=== PATIENT | male | born 1940 | race Caucasian/White ===

== ENCOUNTER 2020-02-15 14:03 | Inpatient (IN) | payer MEDICARE, SELFPAY ==
[2020-02-15 14:06] VITALS: BP 128/89; BP 130/80; PULSE 79; PULSE 80; RESP 20; TEMP 37.1; O2SAT 89; BMI 30.9
--- NOTE | 2020-02-15 14:16 | XR_ITS ---
EXAMINATION: XR CHEST CLINICAL INFORMATION: Hypoxia. COMPARISON: None TECHNIQUE: Frontal view of the chest was obtained. FINDINGS: The lungs are in moderate inspiration with patchy groundglass opacities in both lungs consistent with inflammatory or infectious etiology. There is mild spondylosis dorsal spine. No lytic process. XR/XR chest 1V IMPRESSION: Patchy groundglass opacities in both lungs suggestive of infiltrates likely secondary to Covid infection.
--- NOTE | 2020-02-15 14:17 | ECG_ITS ---
Test Reason : WEAKNESS Blood Pressure : / mmHG Vent. Rate : 072 BPM Atrial Rate : 072 BPM P-R Int : 182 ms QRS Dur : 124 ms QT Int : 438 ms P-R-T Axes : 025 -23 007 degrees QTc Int : 479 ms Normal sinus rhythm Right bundle branch block Abnormal ECG No previous ECGs available Referred By: Kasandra Zaman Electronically Signed By:Richard Rodriguez
--- NOTE | 2020-02-15 14:18 | ED_ITS ---
HPI - General Adult General Chief complaint: Dyspnea Stated complaint: weakness Time Seen by Provider: 02/15/20 14:16 Source: patient and EMS Mode of arrival: EMS Limitations: no limitations History of Present Illness HPI narrative: 79 y/o male with history of DM, BPH, HLD who presents with generalized weakness, fatigue, loss of appetite and loss of taste and smell. He just got out of senior care last week and was exposed to several people with COVID- 19. He reports dizziness when ambulating, mild cough, and chills. His symptoms have been getting progressively worse over the last 4-5 days. He denies shortness of breath or difficultly breathing. He has chest discomfort/soreness when he takes a deep breath and coughs but no chest pain. MD complaint: flu-like symptoms Onset (ago): day(s) (4-5) Severity: moderate Quality: aching Relieving factors: rest Exacerbating factors: movement Associated symptoms: cough, fever/chills, headaches, loss of appetite, malaise and weakness Treatments prior to arrival: none Related Data Home Medications Medication Instructions Recorded Confirmed acetaminophen 650 mg PO Q4H PRN 02/15/20 02/15/20 duloxetine [Cymbalta] 30 mg PO BEDTIME 02/15/20 02/15/20 finasteride 5 mg PO DAILY 02/15/20 02/15/20 glipizide 5 mg PO DAILY 02/15/20 02/15/20 hydrochlorothiazide 25 mg PO DAILY 02/15/20 02/15/20 metformin 1,000 mg PO DAILY 02/15/20 02/15/20 simvastatin 40 mg PO DAILY 02/15/20 02/15/20 terazosin 5 mg PO BEDTIME 02/15/20 02/15/20 Allergies Allergy/AdvReac Type Severity Reaction Status Date / Time No Known Allergies Allergy Verified 02/15/20 14:11 Review of Systems Review of Systems: Constitutional: + Fever, + Chills ENT/Mouth: No sore throat, No Rhinorrhea, No Swallowing Difficulty Eyes: No Eye Pain, No Swelling, No Redness Cardiovascular: No Chest Pain, No SOB, No Orthopnea, No Edema Respiratory: No Cough, No Sputum, No Wheezing, No dyspnea Gastrointestinal: No Nausea, No Vomiting, No Diarrhea, No abdominal Pain Genitourinary: No Dysuria, No Urinary Frequency, No Hematuria Musculoskeletal: No joint pain, No Myalgias Skin: No Skin Lesions, No rash Neuro: + Weakness, No Numbness, No Dizziness, + Headache PMFSH Social History Social History Advance Directives: No Advance Directives Information Provided: No Physical Exam Vital Signs: Vital Signs: Last Vital Signs Temp 98.3 F 02/15/20 20:29 Pulse 80 02/15/20 20:29 Resp 18 02/15/20 20:29 BP 149/71 H 02/15/20 20:29 Pulse Ox 96 02/15/20 20:29 Body Mass Index 30.9 Appearance: Alert. Oriented X3. No acute distress. Eyes: Pupils equal, round and reactive to light. ENT: Pharynx normal. Neck: Normal inspection. Neck supple. CVS: Normal heart rate and rhythm. Pulses normal. Respiratory: No respiratory distress. Coarse throughout Abdomen: Obese, Soft and nontender. +BS x4 Skin: Skin warm and dry. Normal skin color. Normal skin turgor. No rashes. Extremities: No lower extremity edema. Negative Alisha's sign Neuro: Oriented X 3. No motor deficit. No sensory deficit. Course Course Course Narrative: 79 y/o here with flu/COVID symptoms after COVID exposure - hypoxic to 89% on RA, improved to 93% on 2L NC. Will get septic workup, Covid workup, CXR, inflammatory markers, resp panel. Reevaluation(s) Reevaluation #1: COVID +, DDIMER markedly elevated. Mild JC with Scr 1.44 - Given hypoxia and SOB will get V/Q scan to r/o PE. Will require admission. Reevaluation #2: V/Q scan order placed at 4:23 - not seen by radiology. On-call team called in at 6pm. Once completed will admit. Reevaluation #3: 9:12 - received critical result from Radiology - intermediate risk for PE. Will start on heparin gtt. Spoke with hospitalist who will admit. Medical Decision Making Lab Data Result diagrams: 02/15/20 15:17 02/15/20 15:17 Labs: Lab Results 02/15/20 02/15/20 02/15/20 Range/Units 14:48 15:17 15:17 WBC 5.6 (4.8-10.8) X10*3/uL RBC 4.17 L (4.60-5.80) X10*6/uL Hgb 12.3 L (14.0-18.0) g/dl Hct 37.3 L (42-52) % MCV 89.4 (80-98) fL MCH 29.5 (27.0-33.0) pg MCHC 33.0 (31.0-36.0) g/dl RDW 12.3 (11.0-16.0) % Plt Count 175 (160-400) X10*3/uL MPV 9.9 (9.4-12.4) fL Immature Gran % (Auto) 0.5 H (0.0-0.4) % Neut % (Auto) 76.9 H (45-73) % Lymph % (Auto) 12.0 L (20-40) % Cooke % (Auto) 9.7 (2-11) % Eos % (Auto) 0.9 (0-4) % Baso % (Auto) 0.0 (0-2) % Lymph # (Auto) 0.7 L (1.2-4.9) X10*3/uL Cooke # (Auto) 0.5 (0.1-1.2) X10*3/uL Eos # (Auto) 0.1 (0.0-0.4) X10*3/uL Baso # (Auto) 0.0 (0.0-0.2) X10*3/uL Abs Immat Gran (auto) 0.03 (0.00-0.03) X10*3/uL Absolute Neuts (auto) 4.3 (2.0-8.3) X10*3/uL Absolute Nucleated RBC 0.000 (0.0-0.012) X10*3/uL Nucleated RBC % (auto) 0.0 (0.0-0.2) /100WBC Smear Tech's Comments VERIFIED D-Dimer NG/ML Hold Blue Top Sodium 138 (135-145) mmol/L Potassium 3.4 (3.3-5.1) mmol/l Chloride 98 (96-108) mmol/L Carbon Dioxide 29 (22-29) mmol/L Anion Gap 14 (12-20) BUN 34 H (9-16) mg/dL Creatinine 1.44 H (0.5-1.4) mg/dL Estim Creat Clear Calc 47.2 Estimated GFR 47 Random Glucose 137 H (60-115) mg/dL Lactic Acid (0.5-2.0) mmol/L Calcium 8.2 L (8.4-10.2) mg/dL Magnesium 2.1 (1.6-2.6) mg/dL Ferritin 491 H (20-250) ng/mL Total Bilirubin 1.2 H (0.0-1.0) mg/dL Direct Bilirubin 0.6 H (0.0-0.5) mg/dL AST 48 H (5-37) U/L ALT 33 (0-40) U/L Alkaline Phosphatase 63 (39-117) U/L Lactate Dehydrogenase 249 (118-273) U/L Troponin I High Sens (<3.5-35.0) ng/L C-Reactive Protein 22.87 H (< or = 0.50) mg/dL B-Natriuretic Peptide (<100) pg/mL Total Protein 6.7 (6.5-8.0) g/dL Albumin 3.5 (3.5-5.0) g/dL Procalcitonin ng/mL Coronavirus (PCR) POSITIVE A (Negative) Influenza Type A (PCR) NEGATIVE (Negative) Influenza Type B (PCR) NEGATIVE (Negative) RSV RNA Qual (PCR) NEGATIVE (Negative) 02/15/20 02/15/20 02/15/20 Range/Units 15:17 15:17 15:17 WBC (4.8-10.8) X10*3/uL RBC (4.60-5.80) X10*6/uL Hgb (14.0-18.0) g/dl Hct (42-52) % MCV (80-98) fL MCH (27.0-33.0) pg MCHC (31.0-36.0) g/dl RDW (11.0-16.0) % Plt Count (160-400) X10*3/uL MPV (9.4-12.4) fL Immature Gran % (Auto) (0.0-0.4) % Neut % (Auto) (45-73) % Lymph % (Auto) (20-40) % Cooke % (Auto) (2-11) % Eos % (Auto) (0-4) % Baso % (Auto) (0-2) % Lymph # (Auto) (1.2-4.9) X10*3/uL Cooke # (Auto) (0.1-1.2) X10*3/uL Eos # (Auto) (0.0-0.4) X10*3/uL Baso # (Auto) (0.0-0.2) X10*3/uL Abs Immat Gran (auto) (0.00-0.03) X10*3/uL Absolute Neuts (auto) (2.0-8.3) X10*3/uL Absolute Nucleated RBC (0.0-0.012) X10*3/uL Nucleated RBC % (auto) (0.0-0.2) /100WBC Smear Tech's Comments D-Dimer 2912 NG/ML Hold Blue Top SEE NOTE Sodium (135-145) mmol/L Potassium (3.3-5.1) mmol/l Chloride (96-108) mmol/L Carbon Dioxide (22-29) mmol/L Anion Gap (12-20) BUN (9-16) mg/dL Creatinine (0.5-1.4) mg/dL Estim Creat Clear Calc Estimated GFR Random Glucose (60-115) mg/dL Lactic Acid 1.1 (0.5-2.0) mmol/L Calcium (8.4-10.2) mg/dL Magnesium (1.6-2.6) mg/dL Ferritin (20-250) ng/mL Total Bilirubin (0.0-1.0) mg/dL Direct Bilirubin (0.0-0.5) mg/dL AST (5-37) U/L ALT (0-40) U/L Alkaline Phosphatase (39-117) U/L Lactate Dehydrogenase (118-273) U/L Troponin I High Sens 21.6 (<3.5-35.0) ng/L C-Reactive Protein (< or = 0.50) mg/dL B-Natriuretic Peptide 46 (<100) pg/mL Total Protein (6.5-8.0) g/dL Albumin (3.5-5.0) g/dL Procalcitonin ng/mL Coronavirus (PCR) (Negative) Influenza Type A (PCR) (Negative) Influenza Type B (PCR) (Negative) RSV RNA Qual (PCR) (Negative) 02/15/20 Range/Units 15:17 WBC (4.8-10.8) X10*3/uL RBC (4.60-5.80) X10*6/uL Hgb (14.0-18.0) g/dl Hct (42-52) % MCV (80-98) fL MCH (27.0-33.0) pg MCHC (31.0-36.0) g/dl RDW (11.0-16.0) % Plt Count (160-400) X10*3/uL MPV (9.4-12.4) fL Immature Gran % (Auto) (0.0-0.4) % Neut % (Auto) (45-73) % Lymph % (Auto) (20-40) % Cooke % (Auto) (2-11) % Eos % (Auto) (0-4) % Baso % (Auto) (0-2) % Lymph # (Auto) (1.2-4.9) X10*3/uL Cooke # (Auto) (0.1-1.2) X10*3/uL Eos # (Auto) (0.0-0.4) X10*3/uL Baso # (Auto) (0.0-0.2) X10*3/uL Abs Immat Gran (auto) (0.00-0.03) X10*3/uL Absolute Neuts (auto) (2.0-8.3) X10*3/uL Absolute Nucleated RBC (0.0-0.012) X10*3/uL Nucleated RBC % (auto) (0.0-0.2) /100WBC Smear Tech's Comments D-Dimer NG/ML Hold Blue Top Sodium (135-145) mmol/L Potassium (3.3-5.1) mmol/l Chloride (96-108) mmol/L Carbon Dioxide (22-29) mmol/L Anion Gap (12-20) BUN (9-16) mg/dL Creatinine (0.5-1.4) mg/dL Estim Creat Clear Calc Estimated GFR Random Glucose (60-115) mg/dL Lactic Acid (0.5-2.0) mmol/L Calcium (8.4-10.2) mg/dL Magnesium (1.6-2.6) mg/dL Ferritin (20-250) ng/mL Total Bilirubin (0.0-1.0) mg/dL Direct Bilirubin (0.0-0.5) mg/dL AST (5-37) U/L ALT (0-40) U/L Alkaline Phosphatase (39-117) U/L Lactate Dehydrogenase (118-273) U/L Troponin I High Sens (<3.5-35.0) ng/L C-Reactive Protein (< or = 0.50) mg/dL B-Natriuretic Peptide (<100) pg/mL Total Protein (6.5-8.0) g/dL Albumin (3.5-5.0) g/dL Procalcitonin 0.10 ng/mL Coronavirus (PCR) (Negative) Influenza Type A (PCR) (Negative) Influenza Type B (PCR) (Negative) RSV RNA Qual (PCR) (Negative) ECG Data Attestation: I personally reviewed and interpreted this ECG as follows: Prior ECG tracings: not available for review Interpretation: HR 72 bpm, normal sinus rhythm, RBBB, normal AR interval, t-wave inversion in lead III, V1, no ST segment elevations. Critical Care Time Critical Care Time Critical Care Time: Yes Total Critical Care Time: 35 Attestation: I attest to critical care time spent taking care of this patient with life-threatening diagnosis, with acute hypoxia and possible pulmonary emboli. Discharge Plan Discharge Clinical Impression: COVID-19, JC (acute kidney injury), Acute respiratory failure with hypoxia Patient Disposition: Admitted As Inpatient
[2020-02-15] MEDS: dexAMETHasone sod phosphate 4 MG/ML VIAL 6 MG IVPUSH (14:46)
[2020-02-15 15:30] LABS: Eosinophils Absolute Auto 0.1 X10*3/uL (0.0-0.4); Eosinophils Percent Auto 0.9 % (0-4); Hematocrit 37.3 % (42-52); Hemoglobin 12.3 g/dl (14.0-18.0); Imm Gran Abs Auto 0.03 X10*3/uL (0.00-0.03); Imm Gran Pct Auto 0.5 % (0.0-0.4); Lymphocytes Absolute Auto 0.7 X10*3/uL (1.2-4.9); MANUAL DIFF FLAG SCAN; Mean Corpuscular Hemoglobin 29.5 pg (27.0-33.0); Mean Corpuscular Volume 89.4 fL (80-98); Mean Platelet Volume 9.9 fL (9.4-12.4); Monocytes Absolute Auto 0.5 X10*3/uL (0.1-1.2); Monocytes Percent Auto 9.7 % (2-11); Neutrophils Absolute Auto 4.3 X10*3/uL (2.0-8.3); Neutrophils Percent Auto 76.9 % (45-73); Platelet Count 175 X10*3/uL (160-400); Red Blood Count 4.17 X10*6/uL (4.60-5.80); Red Cell Distribution Width 12.3 % (11.0-16.0); SCAN SMEAR FLAG 1; White Blood Count 5.6 X10*3/uL (4.8-10.8)
[2020-02-15 15:41] LABS: Influenza A PCR NEGATIVE (Negative); Influenza B PCR NEGATIVE (Negative); Resp Syncy Virus RNA Qual PCR NEGATIVE (Negative); SARS COV2 PCR INHOUSE POSITIVE (Negative)
[2020-02-15 15:48] LABS: Lactic Acid 1.1 mmol/L (0.5-2.0)
[2020-02-15 15:49] LABS: SLIDE REVIEW VERIFIED
[2020-02-15 15:52] LABS: D Dimer 2912 NG/ML
[2020-02-15 16:16] LABS: Alanine Aminotransferase 33 U/L (0-40); Albumin Level 3.5 g/dL (3.5-5.0); Alkaline Phosphatase 63 U/L (39-117); Anion Gap 14 (12-20); Aspartate Amino Transferase 48 U/L (5-37); Bilirubin Direct 0.6 mg/dL (0.0-0.5); Bilirubin Total 1.2 mg/dL (0.0-1.0); Blood Urea Nitrogen 34 mg/dL (9-16); C Reactive Protein 22.87 mg/dL (< or = 0.50); Calcium 8.2 mg/dL (8.4-10.2); Carbon Dioxide 29 mmol/L (22-29); Chloride 98 mmol/L (96-108); Creatinine Clr Calc Pharmacy 47.2; Estimated Glomerular Filt Rate 47; Glucose Random 137 mg/dL (60-115); Lactate Dehydrogenase 249 U/L (118-273); Magnesium 2.1 mg/dL (1.6-2.6); Potassium 3.4 mmol/l (3.3-5.1); Sodium 138 mmol/L (135-145); Total Protein 6.7 g/dL (6.5-8.0)
[2020-02-15 16:18] LABS: B Type Natriuretic Peptide 46 pg/mL (<100); Troponin-I High Sensitivity 21.6 ng/L (<3.5-35.0)
--- NOTE | 2020-02-15 16:23 | NM_ITS ---
EXAMINATION: NM LUNG IMAGE PERFUSION CLINICAL INFORMATION: Hypoxia. Elevated d-dimer. Concern for PE. Covid positive. COMPARISON: Chest x-ray today TECHNIQUE: Perfusion lung scan performed only with comparison made to the chest x-ray. 4 mCi technetium 99m MAA was given intravenously. Multiple images obtained of the lungs bilaterally. FINDINGS: There are numerous subsegmental defects in the lungs bilateral. These however correlate to the multifocal airspace disease seen on chest x-ray. This study is therefore not a high probability for pulmonary embolism and therefore would be considered a low or intermediate probability exam. (Perfusion only modified PIOPED 2 criteria). NM/NM pul perfusion IMPRESSION: Low or intermediate probability for pulmonary embolism. This critical result was discussed with Kasandra Thorpe on 02/15/2020, 9:10 PM and it was ascertained that the content and urgency of the report was understood at the time of direct communication.
[2020-02-15 16:26] VITALS: BP 124/76; PULSE 65; RESP 16; TEMP 36.9; O2SAT 95
[2020-02-15 16:37] LABS: Ferritin 491 ng/mL (20-250)
[2020-02-15 18:23] VITALS: BP 133/77; PULSE 70; RESP 20; TEMP 37.1; O2SAT 97
[2020-02-15] MEDS: 0.9 % Sodium Chloride 1,000 ML 999 ML IVCONT (18:25)
--- NOTE | 2020-02-15 19:44 | PC.NURSE ---
PATIENT TO NUC MED VIA STRETCHER. NO APPARENT DISTRESS. SPEAKING IN FULL SENTENCES ON MOBILE PHONE. BREATHING EVEN, NON-LABORED.
[2020-02-15 20:29] VITALS: BP 149/71; PULSE 80; RESP 18; TEMP 36.8; O2SAT 96
[2020-02-15 21:23] LABS: INTERNATIONAL NORM RATIO 1.4 (0.9-1.1); Prothrombin Time 16.1 SEC (10.8-13.0)
--- NOTE | 2020-02-15 21:24 | US_ITS ---
EXAMINATION: US VENOUS ULTRASOUND WITH DOPPLER LOWER EXTREMITY, BILATERAL CLINICAL INFORMATION: Elevated d-dimer COMPARISON: None TECHNIQUE: Ultrasound of the deep veins is performed from the hip to the calf with compression sonography and color and pulse Doppler assessment. Spectral analysis with color-flow imaging is performed. FINDINGS: RIGHT: There is normal venous compression and respiratory variation and augmented flow. The visualized common femoral vein, superficial femoral vein, profunda femoral vein, popliteal vein, and the trifurcation region shows no evidence of deep venous thrombosis. A 4.9 x 0.9 x 4.4 cm Chopra's cyst is present. LEFT: There is normal venous compression and respiratory variation and augmented flow. The visualized common femoral vein, superficial femoral vein, profunda femoral vein, popliteal vein, and the trifurcation region shows no evidence of deep venous thrombosis. A 4.6 x 1.2 x 2.9 cm Chopra's cyst is present If the patient's symptoms persist, followup ultrasound in 5 days 7 days might be of value to exclude proximal propagation from a non-visualized calf vein. US/US venous duplex LE BI IMPRESSION: No DVT demonstrated in either lower extremity. Bilateral popliteal cysts are present.
[2020-02-15 22:29] VITALS: BP 123/71; PULSE 70; RESP 18; TEMP 37.1; O2SAT 92
[2020-02-15 22:53] LABS: PTT Heparin Drip 31.6 SEC (53-77.9)
[2020-02-15 22:57] LABS: INTERNATIONAL NORM RATIO 1.4 (0.9-1.1); Prothrombin Time 16.6 SEC (10.8-13.0)
[2020-02-15 23:02] VITALS: BMI 29.9
[2020-02-15] MEDS: Heparin Sodium,Porcine/1/2NS 25,000 UNIT/250 ML IV.SOLN 13.72 UNIT IVCONT (23:15)
[2020-02-16] VITALS (8 sets, daily range): BP systolic 104–158; BP diastolic 60–80; PULSE 64–83; RESP 15–20; TEMP 36.4–36.9; O2SAT 91–95
--- NOTE | 2020-02-16 00:03 | PC.NURSE ---
report from richie patel. pt just started on heparin drip for PE. pt will be admitted.
--- NOTE | 2020-02-16 02:59 | PC.NURSE ---
pt took his own finasteride at 3am. pt awake and alert, ambulatory to bathroom to void.
[2020-02-16 03:17] LABS: Glucose Urine UA NEG (NEG); Leukocyte Esterase Urine NEG (NEG); Nitrite Urine NEG (NEG); Specific Gravity - Urine >= 1.030 (1.005-1.025); Urine Blood NEG (NEG); Urine Ketones 15 MG/DL (NEG); Urine Protein 1+ MG/DL (NEG-TRACE)
[2020-02-16 03:19] LABS: Appearance Urine CLEAR; Color Urine DARK YELLOW
[2020-02-16 03:23] LABS: Bacteria Urine TRACE /LPF; Mucus Urine 1+ /LPF; RBC Urine 0 /HPF (0); Squamous Epithelial Cell Urine 1+ /LPF
[2020-02-16 06:26] LABS: Hematocrit 37.4 % (42-52); Hemoglobin 12.6 g/dl (14.0-18.0); Mean Corpuscular HGB Conc 33.7 g/dl (31.0-36.0); Mean Corpuscular Hemoglobin 29.8 pg (27.0-33.0); Mean Corpuscular Volume 88.4 fL (80-98); Mean Platelet Volume 9.6 fL (9.4-12.4); Platelet Count 198 X10*3/uL (160-400); Red Blood Count 4.23 X10*6/uL (4.60-5.80); Red Cell Distribution Width 12.2 % (11.0-16.0); White Blood Count 4.7 X10*3/uL (4.8-10.8)
[2020-02-16 06:31] LABS: INTERNATIONAL NORM RATIO 1.4 (0.9-1.1); Prothrombin Time 16.3 SEC (10.8-13.0)
[2020-02-16 07:13] LABS: Partial Thromboplastin Time 43.1 SEC (24.1-38.0)
--- NOTE | 2020-02-16 10:16 | PC.NURSE ---
PT AMBULATED TO BATHROOM WITH STEADY GAIT, NO DISTRESS OBSERVED.
[2020-02-16 14:00] LABS: Hematocrit 36.3 % (42-52); Hemoglobin 12.3 g/dl (14.0-18.0); Imm Gran Abs Auto 0.05 X10*3/uL (0.00-0.03); Imm Gran Pct Auto 0.7 % (0.0-0.4); Lymphocytes Absolute Auto 0.5 X10*3/uL (1.2-4.9); MANUAL DIFF FLAG SCAN; Mean Corpuscular HGB Conc 33.9 g/dl (31.0-36.0); Mean Corpuscular Hemoglobin 29.9 pg (27.0-33.0); Mean Corpuscular Volume 88.3 fL (80-98); Mean Platelet Volume 10.1 fL (9.4-12.4); Monocytes Absolute Auto 0.3 X10*3/uL (0.1-1.2); Monocytes Percent Auto 4.6 % (2-11); Neutrophils Absolute Auto 6.2 X10*3/uL (2.0-8.3); Neutrophils Percent Auto 87.7 % (45-73); Platelet Count 221 X10*3/uL (160-400); Red Blood Count 4.11 X10*6/uL (4.60-5.80); Red Cell Distribution Width 12.1 % (11.0-16.0); SCAN SMEAR FLAG 1; White Blood Count 7.1 X10*3/uL (4.8-10.8)
[2020-02-16] MEDS: Finasteride 5 MG TABLET PO (14:09)
[2020-02-16] MEDS: hydroCHLOROthiazide 25 MG TABLET PO (14:09)
[2020-02-16 14:27] LABS: SLIDE REVIEW VERIFIED
[2020-02-16 14:58] LABS: Anion Gap 17 (12-20); Blood Urea Nitrogen 45 mg/dL (9-16); Calcium 8.3 mg/dL (8.4-10.2); Carbon Dioxide 24 mmol/L (22-29); Chloride 99 mmol/L (96-108); Creatinine Clr Calc Pharmacy 57.2; Estimated Glomerular Filt Rate 60; Glucose Random 242 mg/dL (60-115); Potassium 3.9 mmol/l (3.3-5.1); Sodium 136 mmol/L (135-145)
[2020-02-16 15:03] LABS: Anion Gap 17 (12-20); Blood Urea Nitrogen 44 mg/dL (9-16); Carbon Dioxide 24 mmol/L (22-29); Chloride 98 mmol/L (96-108); Creatinine Clr Calc Pharmacy 56.7; Estimated Glomerular Filt Rate 59; Glucose Random 239 mg/dL (60-115); Potassium 3.8 mmol/l (3.3-5.1); Sodium 135 mmol/L (135-145)
--- NOTE | 2020-02-16 15:36 | MHC.CM.PN ---
CM spoke with patient by phone who reports he is independent lives alone and no services. Patient states he does have a HCP [facility] [phone], requested a copy. Discussed discharge plan, home no services. Patient will need assist with transportation. IMM addressed. CM will continue to follow patient for discharge needs.
--- NOTE | 2020-02-16 15:37 | P.PNIM_ITS ---
Subjective Subjective Date of Service: 02/16/20 Interval History: Patient seen and examined at bedside patient reported shortness of breath Review of Systems Constitutional: + Fever, + Chills ENT/Mouth: No sore throat, No Rhinorrhea, No Swallowing Difficulty Eyes: No Eye Pain, No Swelling, No Redness Cardiovascular: No Chest Pain, reported SOB, No Orthopnea, No Edema Respiratory: No Cough, No Sputum, No Wheezing, No dyspnea Gastrointestinal: No Nausea, No Vomiting, No Diarrhea, No abdominal Pain Genitourinary: No Dysuria, No Urinary Frequency, No Hematuria Musculoskeletal: No joint pain, No Myalgias Skin: No Skin Lesions, No rash Neuro: + Weakness, No Numbness, No Dizziness, + Headache Constitutional Constitutional: Reports weakness Cardiovascular Cardiovascular: Reports dyspnea Respiratory Respiratory: Reports dyspnea Gastrointestinal Gastrointestinal: Denies vomiting Neurologic Neurologic: Reports weakness Physical Exam Vital Signs: Vital Signs: Last Vital Signs Temp 98.1 F 02/16/20 12:45 Pulse 83 02/16/20 12:45 Resp 20 02/16/20 12:45 BP 151/77 H 02/16/20 12:45 Pulse Ox 91 L 02/16/20 12:45 Body Mass Index 29.9 Const: General: no acute distress Resp: Auscultation: rales Cardio: Heart sounds: S1 normal heart sound present and S2 normal heart sound present GI: Inspection: Yes normal to inspection Objective Data Current Medications Generic Name Dose Route Start Last Admin Trade Name Freq PRN Reason Stop Dose Admin Acetaminophen 650 mg 02/16/20 12:43 Acetaminophen 325 Mg Tablet PO Q6H PRN Pain, Mild (Pain Scale 1-3) Atorvastatin Calcium 20 mg 02/17/20 09:00 Atorvastatin Calcium 20 Mg Tablet PO DAILY [facility] Dexamethasone Sodium Phosphate 6 mg 02/16/20 10:00 02/16/20 11:05 Dexamethasone Sod Phosphate/Pf 10 Mg/Ml Vial IVPUSH 6 mg DAILY [facility] Administration Docusate Sodium 100 mg 02/16/20 12:43 Docusate Sodium 100 Mg Capsule PO DAILY PRN Constipation Doxazosin Mesylate 4 mg 02/16/20 21:00 Doxazosin Mesylate 2 Mg Tablet PO BEDTIME [facility] Duloxetine HCl 30 mg 02/16/20 21:00 Duloxetine Hcl 30 Mg Capsule. PO BEDTIME [facility] Finasteride 5 mg 02/16/20 12:43 02/16/20 14:09 Finasteride 5 Mg Tablet PO 5 mg DAILY [facility] Administration Heparin Sodium (Porcine) 7,838.08 unit 02/15/20 21:20 Heparin Sodium,Porcine 5,000 Unit/Ml Vial 80 unit/kg (7838.08 unit) IVPUSH BOLUS PRN 80 unit/kg - Heparin Protocol Hydrochlorothiazide 25 mg 02/16/20 12:43 02/16/20 14:09 Hydrochlorothiazide 25 Mg Tablet PO 25 mg DAILY [facility] Administration Protocol Heparin Sodium/Sodium Chloride 25,000 unit in 250 mls @ 0 mls/hr 02/15/20 21:30 02/16/20 08:22 IVCONT 16 units/kg/hr .Q0M [facility] 15.68 mls/hr Titration Protocol Per Protocol Lactated Ringer's 1,000 mls @ 100 mls/hr 02/16/20 12:43 Lr IVCONT .Q10H [facility] Ondansetron HCl 4 mg 02/16/20 12:43 Ondansetron Hcl 4 Mg/2 Ml Vial IVPUSH Q8H PRN Nausea and Vomiting Pharmacy Consult 1 each 02/15/20 16:40 Consult Rx Perform Med Rec MISCELLANE ONCE PRN Consult order Sodium Chloride 3 ml 02/16/20 12:43 02/16/20 14:09 0.9 % Sodium Chloride Flush 3 Ml Syringe IVFLUSH Not Given QSHIFT [facility] Labs CBC & Chem 7: 02/16/20 13:45 02/16/20 13:45 Assessment and Plan (1) COVID-19: Status: Acute (2) JC (acute kidney injury): Status: Acute (3) Acute respiratory failure with hypoxia: Status: Acute Assessment and Plan: 79-year-old male admitted with COVID pneumonia and acute hypoxic respiratory failure Acute hypoxic respiratory failure secondary to COVID pneumonia continue oxygen supplementation continue dexamethasone will get ID consult Acute kidney injury creatinine trending down monitor kidney function avoid nephrotoxins will stop hydrochlorothiazide V/Q scan shows low to intermediate probability of PE on heparin drip will get pulmonology consult Dvt ppx heparin s/c
[2020-02-16] MEDS: Lactated Ringers 1,000 ML 100 ML IVCONT (15:50)
[2020-02-16] MEDS: 0.9 % Sodium Chloride Flush 3 ML SYRINGE IVFLUSH (15:51)
[2020-02-16] MEDS: Heparin Sodium,Porcine/1/2NS 25,000 UNIT/250 ML IV.SOLN 15.68 UNIT IVCONT (16:46)
[2020-02-16] MEDS: DULoxetine HCl 30 MG CAPSULE.DR PO (19:37)
[2020-02-16] MEDS: Doxazosin Mesylate 2 MG TABLET 4 MG PO (19:38)
[2020-02-16] MEDS: ondansetron HCL 4 MG/2 ML VIAL IVPUSH (19:39)
[2020-02-16 21:26] LABS: PTT Heparin Drip 60.7 SEC (53-77.9)
[2020-02-17] VITALS (7 sets, daily range): BP systolic 102–133; BP diastolic 52–74; PULSE 53–86; RESP 18–20; TEMP 36.4–37.2; O2SAT 90–95
[2020-02-17] MEDS: 0.9 % Sodium Chloride Flush 3 ML SYRINGE IVFLUSH ×4 (00:40→21:14)
[2020-02-17] MEDS: Lactated Ringers 1,000 ML 100 ML IVCONT (00:40)
[2020-02-17 07:01] LABS: PTT Heparin Drip 57.7 SEC (53-77.9)
[2020-02-17 07:22] LABS: Anion Gap 13 (12-20); Blood Urea Nitrogen 41 mg/dL (9-16); Calcium 7.8 mg/dL (8.4-10.2); Carbon Dioxide 26 mmol/L (22-29); Chloride 97 mmol/L (96-108); Creatinine Clr Calc Pharmacy 55.3; Estimated Glomerular Filt Rate 58; Glucose Random 298 mg/dL (60-115); Potassium 3.7 mmol/l (3.3-5.1); Sodium 132 mmol/L (135-145)
[2020-02-17] MEDS: Heparin Sodium,Porcine/1/2NS 25,000 UNIT/250 ML IV.SOLN 15.68 UNIT IVCONT (09:24)
[2020-02-17] MEDS: Atorvastatin Calcium 20 MG TABLET PO (09:34)
[2020-02-17] MEDS: Finasteride 5 MG TABLET PO (09:36)
[2020-02-17 11:57] LABS: Glucose, Whole Blood 240 mg/dL (60-115)
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
--- NOTE | 2020-02-17 16:13 | HO.PM.IMPN ---
Subjective Subjective Date of Service: 02/17/20 Interval History: Patient seen and examined at bedside patient reported shortness of breath improving Review of Systems Constitutional: + Fever, + Chills ENT/Mouth: No sore throat, No Rhinorrhea, No Swallowing Difficulty Eyes: No Eye Pain, No Swelling, No Redness Cardiovascular: No Chest Pain, reported SOB, No Orthopnea, No Edema Respiratory: No Cough, No Sputum, No Wheezing, No dyspnea Gastrointestinal: No Nausea, No Vomiting, No Diarrhea, No abdominal Pain Genitourinary: No Dysuria, No Urinary Frequency, No Hematuria Musculoskeletal: No joint pain, No Myalgias Skin: No Skin Lesions, No rash Neuro: + Weakness, No Numbness, No Dizziness, + Headache Constitutional Constitutional: Reports weakness Cardiovascular Cardiovascular: Reports dyspnea Respiratory Respiratory: Reports dyspnea Gastrointestinal Gastrointestinal: Denies vomiting Neurologic Neurologic: Reports weakness Physical Exam Vital Signs: Vital Signs: Last Vital Signs Temp 97.8 F 02/17/20 15:46 Pulse 68 02/17/20 15:46 Resp 20 02/17/20 15:46 BP 131/74 02/17/20 15:46 Pulse Ox 90 L 02/17/20 15:46 Body Mass Index 29.9 Const: General: no acute distress Resp: Auscultation: rales Cardio: Heart sounds: S1 normal heart sound present and S2 normal heart sound present GI: Inspection: Yes normal to inspection Objective Data Current Medications Generic Name Dose Route Start Last Admin Trade Name Freq PRN Reason Stop Dose Admin Acetaminophen 650 mg 02/16/20 12:43 Acetaminophen 325 Mg Tablet PO Q6H PRN Pain, Mild (Pain Scale 1-3) Atorvastatin Calcium 20 mg 02/17/20 09:00 02/17/20 09:34 Atorvastatin Calcium 20 Mg Tablet PO 20 mg DAILY LAKHWINDER Administration Dexamethasone Sodium Phosphate 6 mg 02/16/20 10:00 02/17/20 09:34 Dexamethasone Sod Phosphate/Pf 10 Mg/Ml Vial IVPUSH 6 mg DAILY LAKHWINDER Administration Docusate Sodium 100 mg 02/16/20 12:43 Docusate Sodium 100 Mg Capsule PO DAILY PRN Constipation Doxazosin Mesylate 4 mg 02/16/20 21:00 02/16/20 19:38 Doxazosin Mesylate 2 Mg Tablet PO 4 mg BEDTIME LAKHWINDER Administration Duloxetine HCl 30 mg 02/16/20 21:00 02/16/20 19:37 Duloxetine Hcl 30 Mg Capsule.Dr PO 30 mg BEDTIME LAKHWINDER Administration Finasteride 5 mg 02/16/20 12:43 02/17/20 09:36 Finasteride 5 Mg Tablet PO 5 mg DAILY LAKHWINDER Administration Insulin Human Lispro 0 unit 02/17/20 16:30 Insulin Lispro 100 Unit/Ml 3 Ml Vial SUBCUT QIDACHS [facility] Protocol Ondansetron HCl 4 mg 02/16/20 12:43 02/16/20 19:39 Ondansetron Hcl 4 Mg/2 Ml Vial IVPUSH 4 mg Q8H PRN Administration Nausea and Vomiting Pharmacy Consult 1 each 02/15/20 16:40 Consult Rx Perform Med Rec MISCELLANE ONCE PRN Consult order Sodium Chloride 3 ml 02/16/20 12:43 02/17/20 09:33 0.9 % Sodium Chloride Flush 3 Ml Syringe IVFLUSH 3 ml QSHIFT LAKHWINDER Administration Labs CBC & Chem 7: 02/16/20 13:45 02/17/20 06:01 Microbiology Microbiology Results: Microbiology 02/15/20 15:17 Blood - Venous Blood Culture - Preliminary No growth after 24 hours. 02/15/20 15:17 Blood - Venous Blood Culture - Preliminary No growth after 24 hours. Assessment and Plan (1) COVID-19: Problem details: He has been doing better since taking steroids He is not on oxygen He has had symptoms about fourteen days Status: Acute (2) JC (acute kidney injury): Status: Acute (3) Acute respiratory failure with hypoxia: Status: Acute Assessment and Plan: 79-year-old male admitted with COVID pneumonia and acute hypoxic respiratory failure Acute hypoxic respiratory failure secondary to COVID pneumonia wean down oxygen as tolerated continue dexamethasone id consulted recommended continue dexamethasone Acute kidney injury creatinine trending down monitor kidney function avoid nephrotoxins will stop hydrochlorothiazide V/Q scan shows low to intermediate probability of PE waS on heparin drip pulmonology was consulted recommended stopping heparin drip given low probability and negative V/Q scan heparin drip stopped Dvt ppx heparin s/c can be discharged tomorrow if oxygen remained stable
[2020-02-17 16:20] LABS: Glucose, Whole Blood 310 mg/dL (60-115)
[2020-02-17] MEDS: Insulin Lispro 100 UNIT/ML 3 ML VIAL SUBCUT ×2 (17:12→21:03)
[2020-02-17 19:47] LABS: Glucose, Whole Blood 361 mg/dL (60-115)
[2020-02-17] MEDS: DULoxetine HCl 30 MG CAPSULE.DR PO (21:02)
[2020-02-17] MEDS: Doxazosin Mesylate 2 MG TABLET 4 MG PO (21:02)
[2020-02-17] MEDS: Magnesium Hydrox/Alum Hydrox 30 ML ORAL.SUSP 15 ML PO (22:32)
[2020-02-18] VITALS: BP 130/60; PULSE 53; RESP 18; TEMP 36.7; O2SAT 93
[2020-02-18 04:00] VITALS: BP 137/68; PULSE 57; RESP 20; TEMP 36.6; O2SAT 93
[2020-02-18 07:21] LABS: Anion Gap 12 (12-20); Blood Urea Nitrogen 38 mg/dL (9-16); Calcium 8.1 mg/dL (8.4-10.2); Carbon Dioxide 28 mmol/L (22-29); Chloride 99 mmol/L (96-108); Creatinine Clr Calc Pharmacy 69.7; Estimated Glomerular Filt Rate > 60; Glucose Random 144 mg/dL (60-115); Potassium 3.9 mmol/l (3.3-5.1); Sodium 135 mmol/L (135-145)
[2020-02-18 07:38] VITALS: BP 130/79; PULSE 81; RESP 20; TEMP 36.4; O2SAT 94
[2020-02-18 08:05] LABS: Glucose, Whole Blood 149 mg/dL (60-115)
[2020-02-18] MEDS: 0.9 % Sodium Chloride Flush 3 ML SYRINGE IVFLUSH (09:53)
[2020-02-18] MEDS: Finasteride 5 MG TABLET PO (09:53)
[2020-02-18] MEDS: Atorvastatin Calcium 20 MG TABLET PO (09:53)
--- NOTE | 2020-02-18 11:26 | P.DS_ITS ---
DS: Providers Provider Date of Service: 02/25/20 Date of admission: 02/15/20 22:30 Primary care physician: Nonstaff Physician Consults: 02/16/20 13:30 Consult to Infectious Diseases Routine Consulting Provider: Pennie Marcelino Reason for consultation: covid pneumonia 02/16/20 15:59 Consult to Pulmonology Routine Consulting Provider: Kwame Nichole Reason for consultation: vq scan shows low or intermediate probability on heparin drip advise and tr DS: Diagnosis Discharge Diagnosis (1) COVID-19: Status: Acute Problem details: He has been doing better since taking steroids He is not on oxygen He has had symptoms about fourteen days (2) JC (acute kidney injury): Status: Acute (3) Acute respiratory failure with hypoxia: Status: Acute DS: Medications Discharge Medications Home Medications: Home Medications Medication Instructions Recorded Confirmed acetaminophen 650 mg PO Q4H PRN 02/15/20 02/15/20 duloxetine [Cymbalta] 30 mg PO BEDTIME 02/15/20 02/15/20 finasteride 5 mg PO DAILY 02/15/20 02/15/20 glipizide 5 mg PO DAILY 02/15/20 02/15/20 hydrochlorothiazide 25 mg PO DAILY 02/15/20 02/15/20 metformin 1,000 mg PO DAILY 02/15/20 02/15/20 simvastatin 40 mg PO DAILY 02/15/20 02/15/20 terazosin 5 mg PO BEDTIME 02/15/20 02/15/20 Previous Rx's Medication Instructions Recorded dexamethasone 6 mg PO DAILY #7 tab 02/17/20 DS: Summary Hospital Course Hospital Course: HPi 79 y/o male with history of DM, BPH, HLD who presents with generalized weakness, fatigue, loss of appetite and loss of taste and smell. He just got [facility] last week and was exposed to several people with COVID-19. He reports dizziness when ambulating, mild cough, and chills. His symptoms have been getting progressively worse over the last 4-5 days. He denies shortness of breath or difficultly breathing. He has chest discomfort/soreness when he takes a deep breath and coughs but no chest pain. Hospital course 79-year-old male admitted with acute hypoxic respiratory failure secondary to COVID pneumonia, patient received dexamethasone, patient was weaned down to room air patient was saturating well on room air, patient was stable discharged home po steroids Time Spent with Patient Time attestation: Total time spent providing and/or coordinating discharge services: Discharge coordination time: Greater than 30 minutes Physical Exam Vital Signs: Vital Signs: Last Vital Signs Temp 97.5 F 02/18/20 07:38 Pulse 81 02/18/20 07:38 Resp 20 02/18/20 07:38 BP 130/79 02/18/20 07:38 Pulse Ox 94 02/18/20 07:38 Body Mass Index 29.9 Const: General: no acute distress Resp: Auscultation: rales Cardio: Heart sounds: S1 normal heart sound present and S2 normal heart sound present GI: Inspection: Yes normal to inspection DS: Data Data Completed and Pending Labs on day of discharge: Laboratory Tests 02/15/20 02/15/20 02/15/20 14:48 15:17 15:17 WBC 5.6 RBC 4.17 L Hgb 12.3 L Hct 37.3 L MCV 89.4 MCH 29.5 MCHC 33.0 RDW 12.3 Plt Count 175 MPV 9.9 Immature Gran % (Auto) 0.5 H Neut % (Auto) 76.9 H Lymph % (Auto) 12.0 L [place] % (Auto) 9.7 Eos % (Auto) 0.9 Baso % (Auto) 0.0 Lymph # (Auto) 0.7 L [place] # (Auto) 0.5 Eos # (Auto) 0.1 Baso # (Auto) 0.0 Abs Immat Gran (auto) 0.03 Absolute Neuts (auto) 4.3 Absolute Nucleated RBC 0.000 Nucleated RBC % (auto) 0.0 Smear Tech's Comments VERIFIED PT INR APTT PTT (Heparin Protocol) D-Dimer Hold Blue Top Sodium 138 Potassium 3.4 Chloride 98 Carbon Dioxide 29 Anion Gap 14 BUN 34 H Creatinine 1.44 H Estim Creat Clear Calc 47.2 Estimated GFR 47 POC Glucose Random Glucose 137 H Lactic Acid Calcium 8.2 L Magnesium 2.1 Ferritin 491 H Total Bilirubin 1.2 H Direct Bilirubin 0.6 H AST 48 H ALT 33 Alkaline Phosphatase 63 Lactate Dehydrogenase 249 Troponin I High Sens C-Reactive Protein 22.87 H B-Natriuretic Peptide Total Protein 6.7 Albumin 3.5 Procalcitonin Urine Color Urine Appearance Urine pH Ur Specific [place] Urine Protein Urine Glucose (UA) Urine Ketones Urine Blood Urine Nitrite Ur Leukocyte Esterase Urine RBC Urine WBC Ur Squamous Epith Cells Urine Bacteria Urine Mucus Coronavirus (PCR) POSITIVE A Influenza Type A (PCR) NEGATIVE Influenza Type B (PCR) NEGATIVE RSV RNA Qual (PCR) NEGATIVE 02/15/20 02/15/20 02/15/20 15:17 15:17 15:17 WBC RBC Hgb Hct MCV MCH MCHC RDW Plt Count MPV Immature Gran % (Auto) Neut % (Auto) Lymph % (Auto) [place] % (Auto) Eos % (Auto) Baso % (Auto) Lymph # (Auto) [place] # (Auto) Eos # (Auto) Baso # (Auto) Abs Immat Gran (auto) Absolute Neuts (auto) Absolute Nucleated RBC Nucleated RBC % (auto) Smear Tech's Comments PT 16.1 H INR 1.4 H APTT Cancelled PTT (Heparin Protocol) D-Dimer 2912 Hold Blue Top SEE NOTE Sodium Potassium Chloride Carbon Dioxide Anion Gap BUN Creatinine Estim Creat Clear Calc Estimated GFR POC Glucose Random Glucose Lactic Acid 1.1 Calcium Magnesium Ferritin Total Bilirubin Direct Bilirubin AST ALT Alkaline Phosphatase Lactate Dehydrogenase Troponin I High Sens 21.6 C-Reactive Protein B-Natriuretic Peptide 46 Total Protein Albumin Procalcitonin Urine Color Urine Appearance Urine pH Ur Specific [place] Urine Protein Urine Glucose (UA) Urine Ketones Urine Blood Urine Nitrite Ur Leukocyte Esterase Urine RBC Urine WBC Ur Squamous Epith Cells Urine Bacteria Urine Mucus Coronavirus (PCR) Influenza Type A (PCR) Influenza Type B (PCR) RSV RNA Qual (PCR) 02/15/20 02/15/20 02/15/20 15:17 22:33 22:33 WBC RBC Hgb Hct MCV MCH MCHC RDW Plt Count MPV Immature Gran % (Auto) Neut % (Auto) Lymph % (Auto) [place] % (Auto) Eos % (Auto) Baso % (Auto) Lymph # (Auto) [place] # (Auto) Eos # (Auto) Baso # (Auto) Abs Immat Gran (auto) Absolute Neuts (auto) Absolute Nucleated RBC Nucleated RBC % (auto) Smear Tech's Comments PT 16.6 H Cancelled INR 1.4 H Cancelled APTT Cancelled PTT (Heparin Protocol) 31.6 L D-Dimer Hold Blue Top Sodium Potassium Chloride Carbon Dioxide Anion Gap BUN Creatinine Estim Creat Clear Calc Estimated GFR POC Glucose Random Glucose Lactic Acid Calcium Magnesium Ferritin Total Bilirubin Direct Bilirubin AST ALT Alkaline Phosphatase Lactate Dehydrogenase Troponin I High Sens C-Reactive Protein B-Natriuretic Peptide Total Protein Albumin Procalcitonin 0.10 Urine Color Urine Appearance Urine pH Ur Specific [place] Urine Protein Urine Glucose (UA) Urine Ketones Urine Blood Urine Nitrite Ur Leukocyte Esterase Urine RBC Urine WBC Ur Squamous Epith Cells Urine Bacteria Urine Mucus Coronavirus (PCR) Influenza Type A (PCR) Influenza Type B (PCR) RSV RNA Qual (PCR) 02/16/20 02/16/20 02/16/20 03:08 06:19 06:19 WBC 4.7 L RBC 4.23 L Hgb 12.6 L Hct 37.4 L MCV 88.4 MCH 29.8 MCHC 33.7 RDW 12.2 Plt Count 198 MPV 9.6 Immature Gran % (Auto) Neut % (Auto) Lymph % (Auto) [place] % (Auto) Eos % (Auto) Baso % (Auto) Lymph # (Auto) [place] # (Auto) Eos # (Auto) Baso # (Auto) Abs Immat Gran (auto) Absolute Neuts (auto) Absolute Nucleated RBC 0.000 Nucleated RBC % (auto) 0.0 Smear Tech's Comments PT 16.3 H INR 1.4 H APTT 43.1 H PTT (Heparin Protocol) D-Dimer Hold Blue Top Sodium Potassium Chloride Carbon Dioxide Anion Gap BUN Creatinine Estim Creat Clear Calc Estimated GFR POC Glucose Random Glucose Lactic Acid Calcium Magnesium Ferritin Total Bilirubin Direct Bilirubin AST ALT Alkaline Phosphatase Lactate Dehydrogenase Troponin I High Sens C-Reactive Protein B-Natriuretic Peptide Total Protein Albumin Procalcitonin Urine Color DARK YELLOW Urine Appearance CLEAR Urine pH 6.0 Ur Specific [place] >= 1.030 H Urine Protein 1+ H Urine Glucose (UA) NEG Urine Ketones 15 Urine Blood NEG Urine Nitrite NEG Ur Leukocyte Esterase NEG Urine RBC 0 Urine WBC 1-4 Ur Squamous Epith Cells 1+ Urine Bacteria TRACE Urine Mucus 1+ Coronavirus (PCR) Influenza Type A (PCR) Influenza Type B (PCR) RSV RNA Qual (PCR) 02/16/20 02/16/20 02/16/20 13:45 13:45 13:45 WBC 7.1 RBC 4.11 L Hgb 12.3 L Hct 36.3 L MCV 88.3 MCH 29.9 MCHC 33.9 RDW 12.1 Plt Count 221 MPV 10.1 Immature Gran % (Auto) 0.7 H Neut % (Auto) 87.7 H Lymph % (Auto) 7.0 L [place] % (Auto) 4.6 Eos % (Auto) 0.0 Baso % (Auto) 0.0 Lymph # (Auto) 0.5 L [place] # (Auto) 0.3 Eos # (Auto) 0.0 Baso # (Auto) 0.0 Abs Immat Gran (auto) 0.05 H Absolute Neuts (auto) 6.2 Absolute Nucleated RBC 0.000 Nucleated RBC % (auto) 0.0 Smear Tech's Comments VERIFIED PT INR APTT PTT (Heparin Protocol) D-Dimer Hold Blue Top Sodium 135 136 Potassium 3.8 3.9 Chloride 98 99 Carbon Dioxide 24 24 Anion Gap 17 17 BUN 44 H 45 H Creatinine 1.18 1.17 Estim Creat Clear Calc 56.7 57.2 Estimated GFR 59 60 POC Glucose Random Glucose 239 H D 242 H Lactic Acid Calcium 8.0 L 8.3 L Magnesium Ferritin Total Bilirubin Direct Bilirubin AST ALT Alkaline Phosphatase Lactate Dehydrogenase Troponin I High Sens C-Reactive Protein B-Natriuretic Peptide Total Protein Albumin Procalcitonin Urine Color Urine Appearance Urine pH Ur Specific [place] Urine Protein Urine Glucose (UA) Urine Ketones Urine Blood Urine Nitrite Ur Leukocyte Esterase Urine RBC Urine WBC Ur Squamous Epith Cells Urine Bacteria Urine Mucus Coronavirus (PCR) Influenza Type A (PCR) Influenza Type B (PCR) RSV RNA Qual (PCR) 02/16/20 02/16/20 02/17/20 14:46 21:02 06:01 WBC RBC Hgb Hct MCV MCH MCHC RDW Plt Count MPV Immature Gran % (Auto) Neut % (Auto) Lymph % (Auto) [place] % (Auto) Eos % (Auto) Baso % (Auto) Lymph # (Auto) [place] # (Auto) Eos # (Auto) Baso # (Auto) Abs Immat Gran (auto) Absolute Neuts (auto) Absolute Nucleated RBC Nucleated RBC % (auto) Smear Tech's Comments PT INR APTT PTT (Heparin Protocol) 69.0 D 60.7 57.7 D-Dimer Hold Blue Top Sodium Potassium Chloride Carbon Dioxide Anion Gap BUN Creatinine Estim Creat Clear Calc Estimated GFR POC Glucose Random Glucose Lactic Acid Calcium Magnesium Ferritin Total Bilirubin Direct Bilirubin AST ALT Alkaline Phosphatase Lactate Dehydrogenase Troponin I High Sens C-Reactive Protein B-Natriuretic Peptide Total Protein Albumin Procalcitonin Urine Color Urine Appearance Urine pH Ur Specific [place] Urine Protein Urine Glucose (UA) Urine Ketones Urine Blood Urine Nitrite Ur Leukocyte Esterase Urine RBC Urine WBC Ur Squamous Epith Cells Urine Bacteria Urine Mucus Coronavirus (PCR) Influenza Type A (PCR) Influenza Type B (PCR) RSV RNA Qual (PCR) 02/17/20 02/17/20 02/17/20 06:01 11:53 15:49 WBC RBC Hgb Hct MCV MCH MCHC RDW Plt Count MPV Immature Gran % (Auto) Neut % (Auto) Lymph % (Auto) [place] % (Auto) Eos % (Auto) Baso % (Auto) Lymph # (Auto) [place] # (Auto) Eos # (Auto) Baso # (Auto) Abs Immat Gran (auto) Absolute Neuts (auto) Absolute Nucleated RBC Nucleated RBC % (auto) Smear Tech's Comments PT INR APTT PTT (Heparin Protocol) D-Dimer Hold Blue Top Sodium 132 L Potassium 3.7 Chloride 97 Carbon Dioxide 26 Anion Gap 13 BUN 41 H Creatinine 1.21 Estim Creat Clear Calc 55.3 Estimated GFR 58 POC Glucose 240 H 310 H Random Glucose 298 H Lactic Acid Calcium 7.8 L D Magnesium Ferritin Total Bilirubin Direct Bilirubin AST ALT Alkaline Phosphatase Lactate Dehydrogenase Troponin I High Sens C-Reactive Protein B-Natriuretic Peptide Total Protein Albumin Procalcitonin Urine Color Urine Appearance Urine pH Ur Specific [place] Urine Protein Urine Glucose (UA) Urine Ketones Urine Blood Urine Nitrite Ur Leukocyte Esterase Urine RBC Urine WBC Ur Squamous Epith Cells Urine Bacteria Urine Mucus Coronavirus (PCR) Influenza Type A (PCR) Influenza Type B (PCR) RSV RNA Qual (PCR) 02/17/20 02/18/20 02/18/20 19:21 06:01 07:35 WBC RBC Hgb Hct MCV MCH MCHC RDW Plt Count MPV Immature Gran % (Auto) Neut % (Auto) Lymph % (Auto) [place] % (Auto) Eos % (Auto) Baso % (Auto) Lymph # (Auto) [place] # (Auto) Eos # (Auto) Baso # (Auto) Abs Immat Gran (auto) Absolute Neuts (auto) Absolute Nucleated RBC Nucleated RBC % (auto) Smear Tech's Comments PT INR APTT PTT (Heparin Protocol) D-Dimer Hold Blue Top Sodium 135 Potassium 3.9 Chloride 99 Carbon Dioxide 28 Anion Gap 12 BUN 38 H Creatinine 0.96 Estim Creat Clear Calc 69.7 Estimated GFR > 60 POC Glucose 361 H* 149 H Random Glucose 144 H D Lactic Acid Calcium 8.1 L Magnesium Ferritin Total Bilirubin Direct Bilirubin AST ALT Alkaline Phosphatase Lactate Dehydrogenase Troponin I High Sens C-Reactive Protein B-Natriuretic Peptide Total Protein Albumin Procalcitonin Urine Color Urine Appearance Urine pH Ur Specific [place] Urine Protein Urine Glucose (UA) Urine Ketones Urine Blood Urine Nitrite Ur Leukocyte Esterase Urine RBC Urine WBC Ur Squamous Epith Cells Urine Bacteria Urine Mucus Coronavirus (PCR) Influenza Type A (PCR) Influenza Type B (PCR) RSV RNA Qual (PCR) Preliminary micro results at discharge 02/15/20 15:17 Blood Culture - Preliminary Blood - Venous No growth after 48 hours. 02/15/20 15:17 Blood Culture - Preliminary Blood - Venous No growth after 48 hours. Discharge Plan Discharge Anticipated Discharge Date/Time: 02/17/20 16:07 Patient Disposition: Home, Self-Care Referrals: Physician,Nonstaff [Primary Care Provider] - Discharge Medications: New dexamethasone 6 mg tablet 6 mg PO DAILY Qty: 7 RF: 0 Continued terazosin 5 mg Capsule 5 mg PO BEDTIME RF: 0 acetaminophen 325 mg Tablet 650 mg PO Q4H PRN (Reason: FEVER/PAIN) RF: 0 simvastatin 40 mg Tablet 40 mg PO DAILY RF: 0 metformin 1,000 mg Tablet 1,000 mg PO DAILY RF: 0 finasteride 5 mg Tablet 5 mg PO DAILY RF: 0 glipizide 5 mg Tablet 5 mg PO DAILY RF: 0 duloxetine [Cymbalta] 30 mg Capsule,Delayed Release(Dr/Ec) 30 mg PO BEDTIME RF: 0 Held hydrochlorothiazide 25 mg Tablet 25 mg PO DAILY RF: 0 Hold Instructions: Resume on 02/21/20. Discharge Orders: Discharge Order (Routine); Ordered 02/18/20 Ordered By: Trey Barron Diet: advance to usual diet Activity on Discharge: As tolerated Discharge Date/Time: 02/18/20 12:45 Visit Report Forms: Patient Portal Discharge page Care Plan Goals: see above Health Concerns: covid pneumonia Plan of Treatment: see above
--- NOTE | 2020-02-18 11:52 | MHC.CM.PN ---
Pt cleared for DC home today. Transportation scheduled for 1230 hours via [facility]
[2020-02-18 12:07] LABS: Glucose, Whole Blood 206 mg/dL (60-115)
== END 2020-02-18 12:45 | disposition home or self-care (01) | DRG 177 ==
LOC: HO.ED 20:16 → HO.IMC 02-16 07:26
PROVIDERS: Physician Assistant; Admitting Provider Internal Medicine; Emergency Provider Emergency Medicine; Visit Provider Internal Medicine
DX: U07.1 COVID-19 (principal); J96.01 Acute respiratory failure with hypoxia; J12.82 Pneumonia due to coronavirus disease 2019; N17.9 Acute kidney failure, unspecified; Z79.84 Long term (current) use of oral hypoglycemic drugs; Z79.899 Other long term (current) drug therapy
CPT/HCPCS: 0241U; 36415; 71045; 78580; 80048; 80076; 81001; 82728; 82947; 83605; 83615; 83735; 83880; 84145; 84484; 85025; 85027; 85379; 85610; 85730; 86140; 87040; 93005; 93970; 96361; 96374; 96375; 99285; 99291; A9540; J1100; J2405